=== PATIENT | female | born 1980 | race Two or more races ===

== ENCOUNTER 2023-12-07 14:12 | Emergency (ER) | payer BC, SELFPAY ==
[2023-12-07 14:21] VITALS: BP 118/81; PULSE 94; RESP 16; TEMP 36.4; O2SAT 99; BMI 27.1
[2023-12-07 15:38] VITALS: BP 118/81; PULSE 94; RESP 16; TEMP 36.4
--- NOTE | 2023-12-07 15:52 | ED_ITS ---
HPI - General Adult General Date Seen: 12/07/23 Chief complaint: Animal Bite Stated complaint: R arm dog bite Time Seen by Provider: 12/07/23 14:28 Source: patient Mode of arrival: ambulatory Limitations: no limitations History of Present Illness HPI narrative: Patient is a 43-year-old woman who had gone over to a friend's house take her son out for some ice cream. The family dog took a she with this, clamped on to her upper extremity on the right. She was wearing a sweatshirt, the switch her was not punctured at all, but she pushed the dog off and in the process sustained a laceration to her right upper extremity. She does not think that the dog's tooth contacted her skin at although there is quite a bit of dog saliva on her sweat shirt. She is up-to-date on tetanus as of 2018 and the dog is up-to-date on rabies. She has no other injuries or complaints, no loss of function or weakness. Related Data Previous Rx's ?Medication ?Instructions ?Recorded amoxicillin 875 mg-potassium 1 tab PO BID #10 tabs 12/07/23 clavulanate 125 mg tablet Allergies Allergy/AdvReac Type Severity Reaction Status Date / Time No Known Drug Allergies Allergy Verified 12/07/23 14:21 [facility] Social History Smoking Status: Never smoker How often do you have a drink containing alcohol: never AUDIT-C Alcohol total score: 0 Non-prescribed substance use: denies use Exam Narrative: Exam Narrative: Vital signs reviewed In general, alert, nontoxic woman. Extremities: The right upper extremity is notable for a fairly are large area of bruising, approximately 10 cm in diameter. There is a v-shaped laceration which is about 3 cm in total length with exposed fat and significant gaping. Distal CMS is intact. Skin: Warm and dry, otherwise well perfused intact. Const: Vital Signs, click to edit/add: Vital Signs - 24 hr 12/07/23 14:21 12/07/23 15:38 Temperature 97.6 F 97.6 F Pulse Rate [Pulse Oximeter] 94 94 Respiratory Rate 16 16 Blood Pressure [Le ft Upper Arm] 118/81 118/81 Pulse Oximetry 99 Oxygen Delivery Me thod Room Air Documenting provider has reviewed patient's vital signs: yes Course Course ED Course: Police were contacted and a report was filed here. Procedure note: Wound was anesthetized using lidocaine with epinephrine, explored without evidence of foreign body or injury to deeper structures. It was irrigated by the computer field technician with saline and Hibiclens. I placed a single horizontal mattress suture at the apex of the wound as that part was under some tension. I then placed an additional 8 simple interrupted superficial sutures using 5 0 nylon. She tolerated this well without immediate complication. Dressing applied by the computer field technician. Overall is seems to be somewhat lower risk given that the sweatshirt was not breached, but I am going to cover her with Augmentin. Recommend suture removal in about 10 days, return any time for infection. Ice, ibuprofen and/or Tylenol as needed. Vital Signs Vital signs: Initial Vital Signs Temperature 97.6 F 12/07/23 14:21 Temperature Source Temporal Artery Scan 12/07/23 14:21 Pulse Rate 94 12/07/23 14:21 Pulse Rhythm Regular 12/07/23 14:21 Respiratory Rate 16 12/07/23 14:21 Blood Pressure 118/81 12/07/23 14:21 Blood Pressure Mean 93 12/07/23 14:21 Blood Pressure Position Sitting 12/07/23 14:21 Pulse Oximetry 99 12/07/23 14:21 Oxygen Delivery Method Room Air 12/07/23 14:21 Vital Signs Temperature 97.6 F 12/07/23 14:21 Pulse Rate 94 12/07/23 14:21 Respiratory Rate 16 12/07/23 14:21 Blood Pressure 118/81 12/07/23 14:21 Pulse Oximetry 99 12/07/23 14:21 Oxygen Delivery Method Room Air 12/07/23 14:21 Temperature 97.6 F 12/07/23 15:38 Pulse Rate 94 12/07/23 15:38 Respiratory Rate 16 12/07/23 15:38 Blood Pressure 118/81 12/07/23 15:38 Pulse Oximetry 99 12/07/23 14:21 Oxygen Delivery Method Room Air 12/07/23 14:21 Medications Administered Medications: Discontinued Medications Generic Name Dose Route Start Last Admin Trade Name Freq PRN Reason Stop Dose Admin Lidocaine/Epinephrine 5 ml 12/07/23 14:36 12/07/23 14:45 Lidocaine 1%-Epi 1:100,000 20 Ml INFILTRATI 12/07/23 14:37 5 ml ONCE ONE Administration Discharge Plan Discharge Clinical Impression: Dog bite, Laceration of right upper arm Patient Disposition: Home, Self-Care Condition: Improved Instructions: Animal Bite (ED) Additional Instructions: Antibiotic as prescribed. Suture removal in about 10 days. Return for signs of infection. Ibuprofen and/or Tylenol as needed. Ice may be helpful as well. Prescriptions: New amoxicillin-pot clavulanate 875-125 mg tablet 1 tab PO BID Qty: 10 0RF Follow Up/Referrals: Dwain Titus MS, LAT, ATC [Relocation Services Specialist Certified] - Stand Alone Forms: MyHealth Info Instructions
== END 2023-12-07 15:40 | disposition home or self-care (01) ==
LOC: ED 15:49
PROVIDERS: Emergency Provider Emergency Medicine
DX: S41.151A Open bite of right upper arm, initial encounter (principal); W54.0XXA Bitten by dog, initial encounter
CPT/HCPCS: 12002; 99284

== ENCOUNTER 2024-10-03 13:25 | Outpatient (CLI) | payer BC, SELFPAY ==
[2024-10-06 04:16] LABS: HPV Source Cervical; HPV, High Risk by TMA Not Detected
== END 2024-10-03 13:26 | disposition home or self-care (01) ==
PROVIDERS: Visit Provider Obstetrics & Gynecology
DX: D64.9 Anemia, unspecified (principal); N93.9 Abnormal uterine and vaginal bleeding, unspecified; Z12.4 Encounter for screening for malignant neoplasm of cervix; Z11.51 Encounter for screening for human papillomavirus (HPV); Z13.6 Encounter for screening for cardiovascular disorders
CPT/HCPCS: 80061; 82728; 83540; 83550; 84443; 87624; 87625; 88141; 88142

== ENCOUNTER 2024-10-08 15:29 | Outpatient (CLI) | payer BC, SELFPAY ==
--- NOTE | 2024-10-08 15:45 | CRLHL7_ITS ---
For Patients: As a result of the Century Cures Act, medical imaging exams and procedure reports are released immediately into your electronic medical record. You may view this report before your referring provider. If you have questions, please contact your health care provider. INDICATION: Abnormal uterine bleeding COMPARISON: none TECHNIQUE: 2D garnett scale and color Doppler images were acquired of the pelvis using a transabdominal and transvaginal approach. FINDINGS: Sonographic images demonstrate a normal size and smooth outer contour of the uterus. Uterus measures 8.2 cm in length by 5.3 cm in AP diameter by 6.4 cm in transverse dimension. The myometrium has a heterogeneous echotexture. Small cystic areas are noted. The endometrial lining measures 5 mm in composite thickness. The right ovary measures 3.0 x 2.0 x 2.4 cm in size and the left ovary measures 3.3 x 2.1 x 2.4 cm. The ovaries demonstrate normal arterial and venous blood flow on color Doppler analysis. There are no suspicious fluid collections within the cul-de-sac. Normal-appearing follicles within the ovaries. IMPRESSION: Endometrial thickness 1.2 cm. No endometrial fluid. Dictated by Chadwick Haddad MD @ 10/08/2024 7:03:45 PM (Electronically Signed)
== END 2024-10-08 15:30 | disposition home or self-care (01) ==
LOC: US 15:29
PROVIDERS: Visit Provider Obstetrics & Gynecology
DX: N93.9 Abnormal uterine and vaginal bleeding, unspecified (principal); R93.89 Abnormal findings on diagnostic imaging of other specified body structures
CPT/HCPCS: 76830; 76856

== ENCOUNTER 2025-01-29 09:30 | Outpatient (CLI) | payer BC, SELFPAY ==
--- NOTE | 2025-01-29 09:45 | CRLHL7_ITS ---
For Patients: As a result of the Cures Act, medical imaging exams and procedure reports are released immediately into your electronic medical record. You may view this report before your referring provider. If you have questions, please contact your health care provider. DIGITAL DIAGNOSTIC BILATERAL MAMMOGRAM USING TOMOSYNTHESIS AND COMPUTER-AIDED DETECTION RIGHT BREAST ULTRASOUND INDICATION: 44-year-old female. Pain/discomfort central upper to upper outer RIGHT breast and upper inner RIGHT breast between the 11 and 1 o`clock position. No discrete palpable mass. No skin changes or rashes. No history of biopsy or cancer. MAMMOGRAM TECHNIQUE: CC and MLO views were obtained. This digital study was evaluated with the assistance of computer-aided detection. Digital breast tomosynthesis utilized in interpretation. COMPARISON: Outside mammogram [place], [place] 02/21/2022. FINDINGS: Breast Composition: The breasts are heterogeneously dense which may obscure small masses. No suspicious microcalcifications, masses, or architectural distortion in either breast. No significant change. RIGHT breast ultrasound is recommended for the pain/discomfort within the central upper inner/upper outer RIGHT breast. IMPRESSION: Stable and negative mammogram. ULTRASOUND TECHNIQUE: Directed RIGHT breast ultrasound with this radiologist present. FINDINGS: The RIGHT breast was carefully scanned between the 11 and 1 o`clock position. Special Needs Babysitter images obtained at the 12 o`clock and 1 o`clock position. Only normal breast tissue was identified. No underlying mass. No architectural distortion. These findings were discussed in detail with the patient. Any further workup or follow-up should be based on clinical grounds. Annual mammography is also recommended. BI-RADS Category 1: Negative A lay language report of this examination will be provided to the patient. Dictated by: Masoud Almaraz MD @01/29/2025 10:57:57 AM jj/Dictated by: Masoud Almaraz MD @ 01/29/2025 10:57:00 AM (Electronically Signed)
--- NOTE | 2025-01-29 10:15 | CRLHL7_ITS ---
For Patients: As a result of the Cures Act, medical imaging exams and procedure reports are released immediately into your electronic medical record. You may view this report before your referring provider. If you have questions, please contact your health care provider. SEE DIGITAL DIAGNOSTIC BILATERAL MAMMOGRAM PERFORMED SAME DAY CRL:[email or web address] blanc/Dictated by: Masoud Almaraz MD @ 01/29/2025 10:58:00 AM (Electronically Signed)
== END 2025-01-29 09:31 | disposition home or self-care (01) ==
LOC: MAMMO 09:34
PROVIDERS: Visit Provider Obstetrics & Gynecology
DX: N64.4 Mastodynia (principal); R92.333 Mammographic heterogeneous density, bilateral breasts
CPT/HCPCS: 76642; 77066; G0279

== ENCOUNTER 2025-01-31 06:49 | Day surgery (SDC) | payer BC, SELFPAY ==
[2025-01-31] VITALS (22 sets, daily range): BP systolic 88–132; BP diastolic 43–78; PULSE 54–89; RESP 12–20; TEMP 35.1–36.7; O2SAT 96–100; BMI 27.1
[2025-01-31] MEDS: LACTATED RINGERS 1000 ML 1,000 ML 100 ML IV ×3 (06:55→12:49)
[2025-01-31 07:28] LABS: Ur HCG Qualitative* Negative (Negative)
[2025-01-31] MEDS: SODIUM CHLORIDE 0.9 % (FLUSH) 10 ML SYRINGE IVF (07:49)
[2025-01-31 08:03] LABS: Hemoglobin* 10.4 gm/dL (12.0-16.0)
--- NOTE | 2025-01-31 08:11 | W.PM.H&PU ---
History & Physical Update History & Physical Update H&P Reviewed and patient assessed: No changes noted H&P Updates: Hb 10.4 UPT negative
[2025-01-31 08:12] LABS: Creatinine* 0.5 mg/dL (0.5-1.5); Est. Creatinine Clearance* 114.74; Estimated Glomerular Filt Rate 119 ml/min
[2025-01-31] MEDS: BUPIVACAINE 0.25% 30 ML INJECTION (09:33)
--- NOTE | 2025-01-31 11:07 | P.GSOP_ITS ---
Operative Note Date of procedure: 01/31/25 Pre-op diagnosis: Abnormal uterine bleeding Post-op diagnosis: same Type of Procedure: 1.lysis of adhesions 2. Proctoscopy Indications: An intraoperative consultation was requested due to adhesions the sigmoid to the uterus. Please see Dr. Hartley's consultation and operative note regarding pro cedure indication, risks and benefits. Procedure Description: Patient was intubated, in lithotomy position with laparoscopic equipment on the field when I came into the operating room. Dr. Hartley and Terra had begun the dissection vaginal, but encountered significant adhesions within the posterior cul-de-sac requiring conversion to laparoscopic. The distal aspect of the sigmoid was densely adherent to the posterior uterine wall. Using laparoscopic scissors I carefully dissected the adhesions from the sigmoid, allowing it to be displaced out of the operative field, with gynecology able to complete their circumferential dissection and removal of the uterus. They then sutured the vaginal cuff. I then performed proctoscopy. A small amount of stool was in the rectal vault. The pelvis was filled with saline. Dr. Ellison gently compressed the colon proximally while I insufflated from below. No evidence of leak. I then left the operating room, allowing them to complete the procedure. Findings: Dense adhesions of the sigmoid colon to the posterior uterine wall. Anesthesia: GETA Surgeon: Roslyn Luque MD Estimated blood loss (mL): 0 Condition: stable Disposition: no change
--- NOTE | 2025-01-31 12:17 | W.PM.GYNPROC ---
Procedure Note Date of procedure: 01/31/25 Will [facility] bill your pro fee for this procedure?: Yes Pre-op diagnosis: Menorrhagia with anemia Dysmenorrhea Post-op diagnosis: Endometriosis with obliteration of the posterior cul-de-sac Otherwise as above Procedure: Attempted total vaginal hysterectomy Converted to total laparoscopic hysterectomy with bilateral salpingectomy, extensive lysis of adhesions, cystoscopy Intraoperative consult from Dr. Luque for performance of lysis of adhesions and proctoscopy Anesthesia: GETA Complications: None Surgeon: Chante Hartley MD Intraoperative consult by Dr. Luque Fuel Dock Attendant: Courtney Ellison Estimated blood loss (mL): 50 IV fluids (mL): 2,000 Urine Output (mL): 300 Pathology: specimen obtained, sent to pathology (Uterus with bilateral Fallopian tubes) Condition: stable Disposition: floor Findings: 1. Upon pelvic exam under anesthesia, the vulva and vagina were normal in appearance. This cervix appeared scarred and of irregular contour. Uterus was mobile and anteverted, slightly enlarged. There were no palpable adnexal masses. 2. Upon laparoscopy, survey of the upper abdomen revealed a normal appearance to the inferior edge of the liver, gallbladder and stomach. Bowels were grossly normal appearance, as was the appendix. Survey of the pelvis revealed dense adhesions of the right tube and ovary and the sigmoid colon to the posterior uterus, with obliteration of the posterior cul-de-sac. There were pockets of chocolate covered fluid consistent with endometriomas surrounding these adhesions. The left ovary was adherent to the left uterus and the left broad ligament in this area was thickened and scarred. Upon proctoscopy, carried out during laparoscopic observation, there were no leakage of bubbles from the rectosigmoid into the peritoneal cavity. 3. Upon cystoscopy, performed after completion of hysterectomy, bilateral ureteral jets were noted and there was no injury to the bladder dome. Procedure Description: PROCEDURE IN DETAIL: Patient was taken to the operating room with IV running. She received cefazolin in preoperative prophylaxis. She was positioned in dorsal lithotomy position with her legs initially placed in candy-cane stirrups. Initially, spinal anesthesia was administered, along with IV sedation. She was prepped and draped in the usual sterile fashion. Weighted speculum was inserted. Cervix was grasped along its anterior and posterior lips with thyroid Anthony clamps. The cervical vaginal junction was circumferentially infiltrated with dilute vasopressin. The cervical vaginal junction was then incised circumferentially with scalpel. This was difficult along the posterior aspect, where the cervix was irregular and scarred. There was suboptimal descent of the cervix as well. The vaginal epithelium was dissected bluntly off bilateral uterosacral ligaments. Anterior colpotomy was performed sharply, and a Frank retractor was placed between the bladder and the uterus. The posterior colpotomy was attempted sharply, but only fibromuscularis was entered. This incision in the posterior colpotomy was explored digitally, and I was unable to palpate a definite plane for dissection or palpate the peritoneal reflection. I was unable to reach the posterior cul-de-sac by digital exploration through the anterior colpotomy. Decision was thus made to convert to laparoscopic approach. Patient was repositioned with legs fully supported in Yellofin stirrups. Abdomen was prepped and she was redraped. General anesthesia was established. Speculum was inserted. Cervix visualized and grasped along its anterior lip with a double toothed tenaculum. A medium-sized colpotomizer cup was selected. The tip of the uterine manipulator was inserted through the cervix into the uterine cavity and the balloon was inflated. The speculum was removed. The colpotomy cup was advanced, surrounding the cervix, and the proximal occluder was moved up along the shaft of the VCare and fixed in place. A sterile glove with Ray-Zuri sponges was placed in the vagina around this to maintain pneumoperitoneum. Patient's legs were then placed in neutral position. Attention was turned to patient's abdomen. Infraumbilical area was infiltrated with a small amount of Marcaine. A 5 mm infraumbilical incision was made with a scalpel and carried down to the underlying layer of fascia with the hemostat. 5 mm camera was placed within the 5 mm Fios Kii trocar, and advanced under direct visualization through the anterior abdominal wall into the peritoneal cavity, while tenting up the anterior abdominal wall. The trocar was removed. The balloon was inflated, holding the port in place. Pneumoperitoneum was achieved. Survey of the abdomen and pelvis revealed the above-noted findings. Three additional port sites were created. The first was in the patient's left lower quadrant, just superomedial to the left ASIS. The second was a hand's breadth superior to and slightly medial to the first. The third was in the patient's right lower quadrant, just superomedial to the right ASIS. An 11 mm incision was made in the left lower quadrant, and a 5 mm incision was made at the other 2 sites, after assuring that large vessels were out of harm's way. A 10 mm Fios Kii port was inserted at the left lower quadrant site, and a 5 mm Fios Kii port at each of the other 2 sites, under direct visualization and without complication. The balloon on each of the four ports was inflated, holding each in place. Attention was first turned to the left fallopian tube, which was divided from the mesosalpinx, using the Thunderbeat bipolar cautery device, proceeding laterally to medially, first lysing adhesions near the fimbriated edge. The tube was amputated at the left uterine cornua. This was removed through the port site and sent to pathology. This procedure was repeated on the patient's right side, and the right fallopian tube was also amputated at the cornua and removed from the patient's abdomen. This was also sent to pathology for further analysis. The left round ligament was cauterized and transected with the Thunderbeat device. The left ovary was adherent to the left side of the uterus. This was grasped and full slightly away from the uterus, and then the utero-ovarian ligament was cauterized and transected, and the remnants of the right broad ligament were cauterized and transected between these two structures. The anterior colpotomy had already been performed vaginally; remnants of the broad ligament were dissected away between the round ligament and the anterior colpotomy. The left side of the uterus was generally quite scarred. The left uterine artery was cauterized and transected within scar tissue, and the colpotomy itself was brought to the left side of the cervix. The sigmoid colon was adherent to the left lower uterine segment and posterior uterus, and the colpotomy was not continued at this point due to the presence of the adherent sigmoid colon. Attention was then turned to the right side of the uterus, where the right round ligament was cauterized and transected with the Thunderbeat device. The right utero-ovarian ligament was cauterized and transected, again requiring extensive dissection of adhesions of the ovary to the posterior uterus. The remnants of the right round ligament were cauterized and transected between the round ligament and the pre-existing anterior colpotomy. The right ureter was identified. The right uterine artery was then cauterized and transected with the Thunderbeat device. The colpotomy was brought further along the right side of the cervix, to the point that the sigmoid colon was adherent to the posterior uterus. Dr. Muniz was then consulted, and she performed sharp lysis of adhesions of the sigmoid colon to the posterior uterus, ultimately dropping the sigmoid beneath the vaginal cuff. The colpotomy was completed with the Thunderbeat device. The rectum and sigmoid appeared to be without injury at this time. The uterus was pulled into the patient's vagina, maintaining the pneumoperitoneum. The vaginal cuff was closed with a series of [id number] sutures of 0 Vicryl. These were placed and tied intracorporeally. As the cul-de-sac was obliterated, I was unable to assure that uterosacral ligaments were included in the closure. Ports were left in place but all instruments were removed and pneumoperitoneum was released. Patient's legs were placed back in lithotomy position. The uterus was removed from the vagina and was sent to pathology for further analysis. Digital vaginal exam was performed, showing a small defect in the central cuff. Two sutures of 0 Vicryl were placed vaginally to close this defect. Thereafter, an intact cuff was noted with no obvious active bleeding. The Mcnulty catheter was removed from the bladder, and the cystoscope was assembled with saline inflow, outflow, and light cord in place. The patient was given IV sodium fluorescein prior to the cystoscopy. Cystoscope was advanced through the urethra into the bladder, and survey of the mucosa revealed a normal appearance. The bladder dome was intact. Bilateral ureteral jets were noted. Cystoscope was removed and Mcnulty catheter replaced. Patient's legs were again placed in neutral position. Insufflator was reattached to the port and pneumoperitoneum again achieved. Survey of the pelvis revealed hemostasis. The 11 mm Fios Kii port in the left lower quadrant was removed after balloon on the port was deflated. The Deepak-Marcos laparoscopic closure device was inserted through this port. With the help of this device, the fascia was closed with a single suture of 0-Vicryl. Procedure was deemed complete. The balloons of all remaining port sites were deflated, and all ports were removed after pneumoperitoneum was released. The skin of each port site was closed in a subcuticular fashion with 4 0 Monocryl. Surgical glue was applied above this. Patient tolerated procedure well and was taken to recovery area in stable condition.
--- NOTE | 2025-01-31 12:37 | P.ANES_ITS ---
Anesthesia Charges Start Date/Time Anesthesia Start Date: 01/31/25 Anesthesia Start Time: 08:07 Stop Date/Time Anesthesia Stop Date: 01/31/25 Anesthesia Stop Time: 12:30 Coding CPT Codes CPT Codes: ANESTH SURG LOWER ABDOMEN - 84122 ([id number]) P1 - NORMAL HEALTHY PATIENT, QZ - PETROLEUM GEOLOGIST SVC W/O NURSE ORTHOPEDIC BY
--- NOTE | 2025-01-31 12:37 | W.ANESCHARGE ---
Anesthesia Charges Start Date/Time Anesthesia Start Date: 01/31/25 Anesthesia Start Time: 08:07 Stop Date/Time Anesthesia Stop Date: 01/31/25 Anesthesia Stop Time: 12:30 Coding CPT Codes CPT Codes: ANESTH SURG LOWER ABDOMEN - 45585 ([id number]) P1 - NORMAL HEALTHY PATIENT, QZ - BURSAR SVC W/O EM PHYSICIAN BY
--- NOTE | 2025-01-31 13:03 | SUR.PHASEI ---
Mcnulty catheter secured, draining clear yellow urine
--- NOTE | 2025-01-31 15:21 | PC.NURSE ---
Shift Summary: Returned to floor 1327. [address] in place and patent with clear bright yellow urine. Patient pleasant, alert and oriented. Denies pain or nausea. C/o irritation to eye, updated anesthesia and waiting to hear back. Lap sites exposed to air.
[2025-01-31] MEDS: ONDANSETRON 2 MG/ML inj 4 MG IVP (16:40)
[2025-01-31] MEDS: ERYTHROMYCIN OPHTH OINT 3.5 GM EYE-LEFT ×2 (16:41→21:55)
[2025-01-31] MEDS: SIMETHICONE 80 MG TAB.CHEW 160 MG PO (19:51)
[2025-01-31] MEDS: DOCUSATE SODIUM 100 MG CAPSULE PO (21:55)
--- NOTE | 2025-01-31 22:55 | PC.NURSE ---
Patient had laparoscopic total hysterectomy due to endometriosis. Patient tolerating regular diet, PIV saline locked. Mcnulty patent and draining clear yellow urine. Laparoscopic sites CDI. Patients cornea scratched during intubation so patient is receiving Erythromycin to Left eye. toradol effective for pain relief , Daughter at bedside.
[2025-02-01 00:18] VITALS: BP 89/56; PULSE 76; RESP 18; TEMP 36.9; O2SAT 98
[2025-02-01 02:33] VITALS: BP 100/56; PULSE 67; RESP 16; TEMP 36.4; O2SAT 97
[2025-02-01] MEDS: IBUPROFEN 600 MG TABLET PO (04:20)
--- NOTE | 2025-02-01 06:12 | PC.NURSE ---
end of shift [id number]: Pt AxOx4, cooperative, and pleasant with cares. Pt reports abdominal pain that is managed with scheduled pain medication and repo, Pt indicates relief. Mcnulty remains patent and draining. Denies N/V/SOB/CP. Lap sites remain CDI. Daughter at bedside. Pt able to rest for majority of the night. Pt in bed resting with call light in reach.
[2025-02-01 06:36] LABS: Hemoglobin* 8.3 gm/dL (12.0-16.0)
[2025-02-01 06:53] LABS: Creatinine* 0.6 mg/dL (0.5-1.5); Est. Creatinine Clearance* 95.62; Estimated Glomerular Filt Rate 114 ml/min
[2025-02-01 07:00] VITALS: PULSE 62; RESP 16
[2025-02-01] MEDS: ACETAMINOPHEN 500 MG TABLET 1000 MG PO (07:30)
[2025-02-01 07:33] VITALS: BP 96/50; PULSE 62; RESP 16; TEMP 36.3; O2SAT 97
--- NOTE | 2025-02-01 07:53 | PM.GYNDS1 ---
DS: Providers Provider Time Seen by Provider: 08:45 Date Seen: 02/01/25 Date of admission: 01/31/2025 Primary care physician: Not a Local Provider Admitting Clinician: Chante Hartley MD Attending Physician on discharge: Carline Wilcox MD Date of Discharge: 02/01/25 DS: Diagnosis Discharge Diagnosis (1) Endometriosis determined by laparoscopy: Status: Acute (2) Status post laparoscopic hysterectomy: Status: Acute Problem details: and Bilateral salpingectomy, TIFFANIE. (3) Abnormal uterine bleeding: Status: Acute [employer]NERSHIP SPECIALIST-Discharge Summary Hospital Course Hospital Course Narrative: Patient is a 44 year old admitted on01/31/2025 for scheduled total vaginal hysterectomy that was converted to a total laparoscopic hysterectomy, bilateral salpingectomy and lysis of adhesions. Indication for surgery: Abnormal uterine bleeding. Intraoperative findings: See Dr. Hartley's operative note: endometriosis and pelvic adhesions. She had an uncomplicated surgery. Postoperative course has been uneventful. Vitals have been stable. She has remained afebrile. Today, on postoperative day 1, she reports the pain is well controlled with ibuprofen and Tylenol. She has been able to ambulate Without difficulty. She is tolerating regular diet. She is passing flatus. Mcnulty catheter has not been removed, urine output adequate. She declines opioid pain medication because she has 2 brothers who with opioid addiction. Time Spent with Patient Time attestation: Total time spent providing and/or coordinating discharge services: STRATE[employer] PARTNERSHIP SPECIALIST - Exam Physical Exam: Vital signs: Temp Pulse Resp BP Pulse Ox O2 Del Method 97.4 F L 62 16 96/50 L 97 Room Air 02/01/25 07:33 02/01/25 07:33 02/01/25 07:33 02/01/25 07:33 02/01/25 07:33 02/01/25 07:33 Narrative: General: Pleasant, , well groomed woman in no acute distress. Vital signs: Included in her electronic medical record. Heart: Regular rate and rhythm without gallop, rub or murmur. Chest: Clear to auscultation bilaterally. Abdomen: Soft, nontender and nondistended with normal bowel sounds throughout. No CVA or flank tenderness. Incision(s): Clean, dry and intact with subcutaneous sutures and skin adhesive gel. Extremities: No pain or edema. STRATE[employer] PARTNERSHIP SPECIALIST - DS: Data Data Completed and Pending Labs on day of discharge: Labs from last 24 hours 02/01/25 01/31/25 06:20 07:50 Hgb 8.3 L 10.4 L Creatinine 0.6 0.5 Estimated Creat Clear 95.62 114.74 Estimated GFR 114 119 Blood Type B Positive Antibody Screen NEGATIVE Procedures Procedures: Procedures Operation Date: 01/31/25 08:00 Actual Procedure Side Surgeon p M/S-Attempted Total Vaginal Hysterectomy, Converted to Total laparoscopic Hysterectomy, Bilateral Salpingectomy, Cystoscopy, extensive lysis of adhesions, proctoscopy Chante Hartley MD Discharge Plan Discharge Disposition: Home, Self-Care Discharging Surgeon: Carline Wilcox Follow-Up Appointment: With Dr. Chante Hartley in 2 weeks and a 2nd postoperative visit in 6 weeks Prescriptions: New docusate sodium 100 mg Capsule 100 mg PO BID PRN (Reason: Constipation) Qty: 100 0RF ibuprofen 600 mg Tablet 600 mg PO Q6H Qty: 30 0RF Continued ferrous sulfate [Feosol] 325 mg (65 mg iron) tablet 325 mg PO QDAY Activity Level: Other Discharge Diet: Regular Patient Instructions: Scopolamine (Absorbed through the skin) (Transderm Scop), Laparoscopic Hysterectomy (DC) Additional Instructions: ACTIVITY RESTRICTIONS: Nothing vaginally for 6 weeks: no tampons/intercourse No driving while taking narcotic pain medication during the day. 1-2 weeks. Lifting restriction: Maximum of 20 pounds for 4 weeks. High impact or core exercises: 4 weeks. Submerge the incisions in water (bath/pool/reynaga): 2 weeks. Off of work/school for a minimum of 4 weeks NO RESTRICTIONS for: Walking Going up/down stairs Showering Being the passenger in a motor vehicle SYMPTOMS TO REPORT TO YOUR DOCTOR: Bleeding that is red, like a moderate period Passing clots larger than the size of a golf ball Pain not relieved by prescribed medication Fever above 100.4 degrees Fahrenheit A foul vaginal odor Decrease in urination or painful, frequent urinating Chest pain Shortness of breath Tenderness or pain with redness and/swelling in the calf(s) of your leg Follow-up Appointments: 1. [facility] 2 [facility] for an incision check. 2. A 6 week postop visit to verify that the vaginal cuff is well-healed. For pain: Aleve (2 tablets) every 12 hours and ES Tylenol 1,000mg (2 tablets) every 6 hours. Forms: Work/School Release Follow-up: Provider,Not a Local [Primary Care Provider, Family Practice] Discharge Orders: Discharge Order (Routine); Ordered 02/01/25 Ordered By: Carline Wilcox
[2025-02-01 11:00] VITALS: BP 97/53; PULSE 68; RESP 16; TEMP 36.6; O2SAT 97
--- NOTE | 2025-02-01 13:13 | PC.NURSE ---
Pt doing well today. VSS. Pain controlled with PRN tylenol and ibuprofen, heat and ambulation. Mcnulty was removed, pt voiding well on own. Tolerating ambulation in halls and regular diet. Abdominal incision sites are REGROOVER, clean, dry and intact. Pt discharge information and pt belongings signed. Pt discharged home at 1225 via daughter.
== END 2025-02-01 12:25 | disposition home or self-care (01) ==
LOC: OR 06:52 → MEDSURG 06:54
PROVIDERS: Nurse Anesthetist, Certified Registered; Visit Provider Obstetrics & Gynecology
PROC: (CPT 58571; principal; 2025-01-31 08:00)
DX: N92.0 Excessive and frequent menstruation with regular cycle (principal); N94.6 Dysmenorrhea, unspecified; N80.329 Endometriosis of the posterior cul-de-sac, unspecified depth; D50.0 Iron deficiency anemia secondary to blood loss (chronic); N73.6 Female pelvic peritoneal adhesions (postinfective); D25.1 Intramural leiomyoma of uterus
CPT/HCPCS: 58571; 49329; 00840; 36415; 81025; 82565; 85018; 86850; 86900; 86901; 88307; A4314; A9270; J0330; J0665; J0690; J1100; J1630; J1885; J2250; J2274; J2371; J2405; J2704; J3010; J3490; J7120

== ENCOUNTER 2025-03-11 11:43 | Outpatient (CLI) | payer BC, SELFPAY | END 2025-03-11 11:44 | disposition home or self-care (01) | LOC: NFLDREF 03-17 07:32 | PROVIDERS: Visit Provider Obstetrics & Gynecology | DX: R10.9 Unspecified abdominal pain (principal); N39.0 Urinary tract infection, site not specified | CPT/HCPCS: 87086 ==

== ENCOUNTER 2025-03-14 09:52 | Outpatient (CLI) | payer BC, SELFPAY ==
[2025-03-14 14:27] LABS: Bacterial Vaginosis* Negative (Negative); Candida glab/krus NOT DETECTED (No Detected)
== END 2025-03-14 09:53 | disposition home or self-care (01) ==
LOC: LAB 09:53
PROVIDERS: Visit Provider Obstetrics & Gynecology
DX: N89.8 Other specified noninflammatory disorders of vagina (principal)
CPT/HCPCS: 81513; 87481; 87661